=== PATIENT | male | born 2005 | race Caucasian/White ===

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

== ENCOUNTER 2025-05-23 19:47 | Emergency (ER) | payer MEDICAID ==
[~2025-05-23] VITALS: Ht 170.2 cm; Wt 98.6 kg
[~2025-05-23 19:47] MED LIST: DIPH25CA83 PO; METH4TAB81 PO
[2025-05-23 19:54] VITALS: BP 114/66; PULSE 112; RESP 15; O2SAT 99
--- NOTE | 2025-05-23 20:15 | RADIOLOGY REPORT ---
EXAM: DI FOOT, COMPLETE (3VW MIN) REASON FOR EXAM: FOOT PAIN RIGHT TECHNIQUE: AP, lateral, and oblique views of the right foot are submitted for review. COMPARISON: None FINDINGS: The bones demonstrate normal mineralization. There is no acute fracture or dislocation. The joint spaces are maintained. The soft tissues are within normal limits. IMPRESSION: No acute fracture or dislocation.
--- NOTE | 2025-05-23 21:59 | Physician Documentation ---
History of Present Illness ~ Chief Complaint: Ankle pain Stated Complaint: RIGHT FOOT PAIN Time Seen by MD: 19:56 HPI Is a 19-year-old male that presents to the emergency department for evaluation of right foot pain after doing a back flip on a trampoline earlier today. Taisha fried reports he can not bear weight on the foot at this time. Patient denies taking any Tylenol ibuprofen prior to presentation. Any other symptoms. Tetanus witin 5 years: No Medication Reconciliation Allergies: Coded Allergies: No Known Allergies (Unverified , 05/23/25) Scheduled Diphenhydramine Hcl (Benadryl), 2 CAP PO HS Methylprednisolone (Medrol Dosepak), 4 MG PO DAILY Past Medical History Past Medical History: Hernia Past Surgical History: other Other Past Surgical History: Hernia repair surgery Smoking Status: Current every day smoker Alcohol Use: None Drug Use: none Lives with: Mother, Family Lives In: Home Occupation: student, child Review of Systems ROS As stated above in the HPI, otherwise all systems are reviewed and negative. Physical Exam Vital Signs: Temperature: 97.6, Source: Temporal, Heart Rate: 112, Respiratory Rate: 15, BP: 114/66, Pulse Oximetry: 99, Weight: 98.600 Physical Exam VITALS: Reviewed and as above. GENERAL: Alert, no apparent distress. MUSCULOSKELETAL No deformities, mild edema noted to the right lower extremity, tenderness with palpation and range of motion to the right lower extremity. SKIN: Warm and dry, no rash NEURO: Oriented x4, No motor or sensory deficit PSYCH: Normal mood and affect, no agitation Progress Results/Orders Results/Orders Orders - ZION DONOVANP General Nursing Order (05/23/25 21:07) Vital Signs 05/23/25 19:54 Temp 97.6 Pulse 112 Resp 15 B/P (MAP) 114/66 Pulse Ox 99 Medical Decision Making Additional information obtaine: other Findings Patient presents with right lower extremity pain. Given history, exam and workup patient likely has soft tissue injury or sprain to the right foot. X-ray was negative for any fractures dislocations or abnormalities. I have low suspicion for fracture, dislocation, significant ligamentous injury, septic arthritis, gout flare, new autoimmune arthropathy, or gonococcal arthropathy. Patient was placed in an [place] with crutches. Patient follow up with his primary care provider. Patient will return to the emergency department if any worsening of his current symptoms or any additional concerning symptoms that we discussed here today i.e. increased swelling increased redness patient is having pain, numbness tingling fever chills nausea vomiting or any other concerning symptoms that we discussed here today. Tylenol ibuprofen as needed for discomfort. Rest ice elevation as tolerated. Follow up with the primary care provider. Emergency department with any worsening or recurrent symptoms or any additional concerning symptoms that we discussed here today. General Diff Dx:Considerations: Include: Abrasion, Contusion, Fracture, Hematoma, Laceration, Malunion, Neurovascular injury, Open fracture, Sprain, Ulcer, Other Knee Diff Dx:Considerations: Include: Abrasion, Arthritis, Contusion, DJD, Fracture-femur, Fracture-fibula, Fracture-patella, Fracture-tibia, Gout, Hematoma, Laceration, Meniscus injury, Neurovascular injury, Open fracture, Rheumatoid arthritis, Septic, Sprain, Sprain-MCL, Sprain-LCL, Sprain-ACL, Sprain-PCL, Other Ankle Diff Dx:Considerations: Include: Abrasion, Arthritis, Contusion, DJD, Fracture-metatarsal, Fracture-fibula, Fracture-tarsal, Fracture-tibia, Gout, Hematoma, Laceration, Malunion, Neurovascular injury, Nonunion, Open fracture, Osteomyelitis, Rheumatoid arthritis, Sprain, Septic, Ulcer, Other Foot Diff Dx:Considerations: Include: Abrasion, Arthritis, Cellulitis, Contusion, Dislocation, DJD, Fracture-metatarsal, Fracture-phalynx, Fracture-tarsal, Gout, Hematoma, Ingrown toenail, Laceration, Malunion, Neurovascular injury, Open fracture, Paronychia, Puncture, Rheumatoid, Sprain, Septic, Subungual hematoma, Ulcer, Other Toe Diff Dx:Considerations: Include: Abrasion, Cellulitis, Contusion, Dislocation, Felon, Fracture, Hematoma, Laceration, Neurovascular injury, Open fracture, Paronychia, Subungual hematoma, Other Departure Disposition: 01 HOME / SELF CARE / HOMELESS Impression: Primary Impression: Foot sprain Additional Impressions: Pain Swelling Condition: Stable Discharge Instructions: Foot Sprain Additional Instructions: Patient presents with right lower extremity pain. Given history, exam and workup patient likely has soft tissue injury or sprain to the right foot. X-ray was negative for any fractures dislocations or abnormalities. I have low susp icion for fracture, dislocation, significant ligamentous injury, septic arthritis, gout flare, new autoimmune arthropathy, or gonococcal arthropathy. Patient was placed in an [place] with crutches. Patient follow up with his primary care provider. Patient will return to the emergency department if any worsening of his current symptoms or any additional concerning symptoms that we discussed here today i.e. increased swelling increased redness patient is having pain, numbness tingling fever chills nausea vomiting or any other concerning symptoms that we discussed here today. Tylenol ibuprofen as needed for discomfort. Rest ice elevation as tolerated. Follow up with the primary care provider. Emergency department with any worsening or recurrent symptoms or any additional concerning symptoms that we discussed here today. Departure Forms: Excuse form Work or School Excused From: Work Excuse beginning now through the following date: May 25, 2025 May Return but still avoid physical Activity from now until: May 23, 2025 May Return to full physical activity as of: May 25, 2025 Referrals: NO PRIMARY CARE PROVIDER (PCP) Education Educated: Patient Educated regarding: diagnosis, treatment, need for follow up Signature Scribe Signature: A Attestation: Scribed for Zion Donovan by KAYKAY Rosado . 05/23/25 22:01 ZION DONOVAN May 23, 2025 21:59
[2025-05-23 22:04] VITALS: TEMP 97.6
== END 2025-05-23 22:08 | disposition home or self-care (01) ==
LOC: ER 19:47
DX: S93.691A Other sprain of right foot, initial encounter (principal); F17.200 Nicotine dependence, unspecified, uncomplicated; Z98.890 Other specified postprocedural states; Z79.899 Other long term (current) drug therapy; X58.XXXA Exposure to other specified factors, initial encounter; Y93.44 Activity, trampolining; Y92.89 Other specified places as the place of occurrence of the external cause; Y99.8 Other external cause status
CPT/HCPCS: 73630; 99283; A6449